=== PATIENT | female | born 1995 | race Caucasian/White ===

== ENCOUNTER → 2024-11-30 07:16 | Outpatient (REF) | payer BC, SELFPAY | LOC: PNTC 07:16 | PROVIDERS: ATTENDING PHYSICIAN Obstetrics & Gynecology | DX: Z29.13 Encounter for prophylactic Rho(D) immune globulin (principal); Z34.03 Encounter for supervision of normal first pregnancy, third trimester | CPT/HCPCS: 36415; 86850; 86900; 86901; 96372; J2790 ==

== ENCOUNTER 2025-01-20 17:04 | Observation (INO) | payer BC, SELFPAY ==
[2025-01-20 17:20] VITALS: BP 89/76; BMI 24.7
== END 2025-01-20 18:08 | disposition home or self-care (01) ==
LOC: LDRP 17:04
PROVIDERS: ADMITTING PHYSICIAN Obstetrics & Gynecology
DX: O36.8130 Decreased fetal movements, third trimester, not applicable or unspecified (principal); Z3A.35 35 weeks gestation of pregnancy; Z88.0 Allergy status to penicillin; Z88.2 Allergy status to sulfonamides
CPT/HCPCS: 59025; G0378

== ENCOUNTER 2025-02-14 03:40 | Inpatient (IN) | payer BC, SELFPAY ==
[2025-02-14 03:58] VITALS: BMI 25.1
[2025-02-14] MEDS: LR 1000 IV ×2 (04:10→06:46)
[2025-02-14 04:19] VITALS: BP 125/85
[2025-02-14 04:43] LABS: % Basophils 0.2 % (0-2); % Eosinophils 1.2 % (0-6); % Immature Granulocytes 0.4 % (0-0.5); % Lymphocytes 28.1 % (20.5-51.1); % Monocytes 4.8 % (1.7-9.3); % Neutrophils 65.3 % (42.2-75.2); Absolute Eosinophils 0.1 10^3/uL (0-0.7); Absolute Lymphocytes 2.5 10^3/uL (1.2-3.4); Absolute Monocytes 0.4 10^3/uL (0.1-0.6); Absolute Neutrophils 5.8 10^3/uL (1.4-6.5); Hematocrit 38.9 % (37.0-47.0); Hemoglobin 13.6 g/dL (12.0-16.0); Mean Corpuscular Hgb 33.1 pg (27.0-31.0); Mean Corpuscular Volume 94.6 fL (81.0-99.0); Mean Platelet Volume 11.6 fL (7.4-10.4); Nucleated Red Blood Cells % 0 %; Platelet Count 159 10^3/uL (130-400); Red Blood Cell Count 4.11 10^6/uL (4.20-5.40); Red Cell Dist. Width 12.4 % (11.5-14.5); White Blood Cell Count 8.9 10^3/uL (4.8-10.8)
[2025-02-14] MEDS: VANCOCIN 530 MG IV ×2 (04:52→12:50)
[2025-02-14] MEDS: LR IV (07:00)
[2025-02-14] MEDS: SUBLIMAZE 100 MCG EPIDURAL (08:38)
[2025-02-14] MEDS: FENTANYL/BUPIVACAINE 100 EPIDURAL (08:38)
[2025-02-15 04:47] LABS: Hematocrit 34.4 % (37.0-47.0); Hemoglobin 12.5 g/dL (12.0-16.0)
[2025-02-15] MEDS: PRENATAL PLUS 1 TABLET PO (08:45)
[2025-02-15] MEDS: MOTRIN 600 MG PO (11:34)
[2025-02-15] MEDS: RHOGAM 300 MCG IM (15:22)
[2025-02-16] MEDS: PRENATAL PLUS 1 TABLET PO (08:29)
[2025-02-16] MEDS: M-M-R II 0.5 ML SC (12:03)
[2025-02-17 11:14] LABS: Syphilis/T. pallidum Ab Reflex Negative (Negative)
== END 2025-02-16 13:45 | disposition home or self-care (01) | DRG 806 ==
LOC: LDRP 03:40
PROVIDERS: Obstetrics & Gynecology; ADMITTING PHYSICIAN Obstetrics & Gynecology
PROC: 6A550ZT Pheresis of Cord Blood Stem Cells, Single (ICD-10-PCS; 2025-02-14)
PROC: 0HQ9XZZ Repair Perineum Skin, External Approach (ICD-10-PCS; 2025-02-14)
PROC: 10E0XZZ Delivery of Products of Conception, External Approach (ICD-10-PCS; 2025-02-14)
PROC: 3E0234Z Introduction of Serum, Toxoid and Vaccine into Muscle, Percutaneous Approach (ICD-10-PCS; 2025-02-15)
PROC: 3E0134Z Introduction of Serum, Toxoid and Vaccine into Subcutaneous Tissue, Percutaneous Approach (ICD-10-PCS; 2025-02-16)
DX: O42.02 Full-term premature rupture of membranes, onset of labor within 24 hours of rupture (principal); D68.51 Activated protein C resistance; Z37.0 Single live birth; O99.12 Other diseases of the blood and blood-forming organs and certain disorders involving the immune mechanism complicating childbirth; O99.824 Streptococcus B carrier state complicating childbirth; Z3A.39 39 weeks gestation of pregnancy; Z91.018 Allergy to other foods; Z88.0 Allergy status to penicillin; Z88.2 Allergy status to sulfonamides; O70.0 First degree perineal laceration during delivery; Z23 Encounter for immunization
CPT/HCPCS: 85014; 85018; 85025; 85461; 86780; 86850; 86870; 86900; 86901; 90707; J2790